=== PATIENT | female | born 2000 | race Caucasian/White ===

== ENCOUNTER 2021-08-07 11:41 | Outpatient (CLI) | payer BC, SELFPAY ==
--- NOTE | ~2021-08-07 | US_ITS ---
EXAMINATION: US breast RT limited HISTORY: Palpable lump of the lower-outer right breast. TECHNIQUE: The liver and right breast ultrasound is performed in the area of clinical concern. FINDINGS: There is a 3.0 x 1.4 cm oval, circumscribed, parallel, hypoechoic mass with posterior acous tic enhancement and internal vascularity at the 7:00 location 1 cm from the nipple. IMPRESSION: Right breast mass in the area of clinical concern with imaging features suggestive of a fibroadenoma. Recommend clinical follow-up and follow-up targeted right breast ultrasound in six months. BI-RADS category 3, probably benign findings. Reviewed, dictated and finalized at location A. [employer] IMPRESSION: Right breast mass in the area of clinical concern with imaging features suggest camryn of a fibroadenoma. Recommend clinical follow-up and follow-up targeted righ t breast ultrasound in six months. BI-RADS category 3, probably benign findings.
== END 2021-08-07 11:42 | disposition home or self-care (01) ==
LOC: ANHIMG 11:44
PROVIDERS: PCP Physician Assistant; Visit Provider Physician Assistant
DX: N63.10 Unspecified lump in the right breast, unspecified quadrant (principal); R92.8 Other abnormal and inconclusive findings on diagnostic imaging of breast
CPT/HCPCS: 76642

== ENCOUNTER → 2021-11-07 01:24 | Outpatient (CLI) | payer BC, SELFPAY ==
[2021-11-07 11:52] LABS: SARS-CoV-2 RNA PCR Negative
== END ==
PROVIDERS: PCP Physician Assistant; Visit Provider Surgery
DX: Z01.812 Encounter for preprocedural laboratory examination (principal); Z20.822 Contact with and (suspected) exposure to COVID-19
CPT/HCPCS: C9803; U0003; U0005

== ENCOUNTER 2021-11-10 01:37 | Day surgery (SDC) | payer BC, SELFPAY ==
[2021-11-06 14:03] VITALS: BMI 22.8
--- NOTE | 2021-11-06 14:50 | SUR.PREOP ---
Report to the Outpatient Waiting Room, entrance under the green pavilion located off [facility], at time _1000 on date _11/10/21 . OR Time: _1200 . - You and your visitor will be asked a series of questions to screen for COVID 19 for your protection. - A mask is required within the hospital. Preoperative COVID Testing Requirements: No COVID Test needed if: (proof is required; if not received patient will have Rapid Test prior to entry) - Patient has received COVID Vaccine at least 14 days prior to procedure date or - Patient has positive COVID test result within last 90 days of surgery date. COVID Test needed if above criteria is not met If not COVID vaccinated a COVID test must be conducted within 72 hours of surgery and patient is asked to isolate self from time of testing until procedure. You will go to the [facility] for your COVID testing. The [facility] is located at the corner of [address] [facility]. You will only be called if COVID results are positive and your surgeon may reschedule your elective surgery date. Patients may have clear liquids (water, carbonated beverages, clear teas, apple juice) until 3 hours prior to surgery with a maximum of 20 ounces. - No food from midnight until time of surgery - Infants may have breast milk until 4 hours before surgery, infant formula 6 hours prior to surgery. - Children will be allowed to drink immediately following surgery. If applicable, please bring a bottle or sippy cup to assist with drinking. Juice, water, soda, and popsicles are readily available. For infants on formula, please bring formula the day of surgery. Pacifiers are allowed. Take the following medications with a SIP of water the morning of surgery: ____n/a Medications to discontinue per physician ____n/a Date to take last dose__n/a Please no make-up, nail welsh, hairspray, perfume, deodorant, or body powder the day of surgery. No jewelry (including any body piercings) or valuables the day of surgery, leave them at home. Please take a shower or bath the night before, or the morning of, surgery with an antibacterial soap. Wear comfortable, loose fitting clothing. Children are encouraged to wear pajamas. - Jewelry must be removed prior to entering the operating room. Rings and piercings that are not removed may be cut off. - The hospital will not accept responsibility for valuables. - Please leave all valuables, including medications, at home the day of surgery. If you are going home after surgery, a licensed entry driver operator must drive you home. - NO public transportation without another adult. - We recommend that an adult stay with you for 24 hours following discharge. - We also recommend that you do not drive, make important decision, drink alcoholic beverages, or take any drugs that were not prescribed by your health care provider for at least 24 hours after your discharge time. For Pediatric surgeries, we recommend two adults accompany the child home (only one inside the building at this time). One visitor will be allowed to accompany the patient into the hospital. Patients visitor will be instructed to remain with patient at all times or leave the building. We will allow the visitor to come back to the postoperative area when patient is ready. Follow any additional instructions given to you from your surgeon. Telephone instructions given to alyssa an and asked if any additional questions and then verbalized understanding. Patient advised to call surgeon office or pre surgery nurse liaison [phone] if any additional questions.
[2021-11-10] MEDS: ACETAMINOPHEN 500 MG TABLET 1000 MG PO (10:23)
[2021-11-10] MEDS: KETOROLAC 15 MG/ML VIAL (*BKC) IV PUSH (10:25)
[2021-11-10] MEDS: LACTATED RINGERS 1,000 ML 30 ML IV CONT (10:25)
[2021-11-10 10:50] VITALS: BP 115/85; PULSE 122; RESP 20; TEMP 37.4; O2SAT 100
--- NOTE | 2021-11-10 10:54 | P.PNAN_ITS ---
Anes - Initial Pre Proc Eval Procedure: Operation Date: 11/10/21 12:00 Proposed Procedures p Right Breast Lumpectomy - Aleks Koo DO Date/Time: 11/10/21 10:54 Surgeon: Aleks Koo DO Pre Op Diagnosis: right breast mass Patient Data Age: 21 Gender: F Height: 1.57 m Weight: 56.81 kg Allergies Allergy/AdvReac Type Severity Reaction Status Date / Time No Known Allergies Allergy Unknown Verified 11/06/21 13:48 Home Medications Medication Instructions Recorded Confirmed Type No Home Medications 10/02/21 11/06/21 History Patient hx anesthesia problems: none Family hx anesthesia problems: none Results Review: All pre-operative results and documents have been reviewed as part of the pre-operative evaluation. [facility] Past Medical History Medical History Smoker Surgical History Surgical History No history of previous surgery Family History Family History Father Hypertension Thyroid condition Grandparent Cancer Fibromyalgia Other Diabetes mellitus Social History Social History Tobacco type: e-cigarettes/vaping Additional smoking assessment comments: daily Alcohol intake: never Substance use: current Substance use type: marijuana Other substance usage details: 1 every few months Spiritual care concerns: No Anes - Eval Final PreProcedure Day of Procedure 11/10/21 10:54 Patient weight: normal Heart: regular rate and rhythm Lungs: clear to auscultation Airway: Mallampati scale class II Neurological: alert and oriented Last oral intake: >/= 8 hours ASA classification: II Emergent: no Anesthetic plan: proceed Anesthesia type and monitoring: general LMA and standard monitoring Results Review: All pre-operative results and documents have been reviewed as part of the pre-operative evaluation. Informed Consent: The patient's anesthetic plan and its attendant risks and benefits were discussed with the patient/family/POA. Questions were solicited and answers provided to the satisfaction of the patient/family/POA.
--- NOTE | 2021-11-10 11:45 | WPDHPUPDATE1 ---
History and Physical Update Update Date/Time: 11/10/21 11:45 History and Physical has been reviewed, including an updated exam of the patient. There are NO changes in the patient's condition. Risks, benefits, and alternatives have been discussed and questions answered. Patient agrees to proceed with procedure.
--- NOTE | 2021-11-10 11:45 | PM.IMHP ---
H&P: HPI History of Present Illness Date/Time: 11/10/21 11:45 Chief Complaint: right breast mass Narrative: 21 yo woman presents for right breast lumpectomy. She denies any changes since last seen in office. Review of Systems Review of Systems: All systems reviewed & are unremarkable except as noted in HPI and below Constitutional: Constitutional: Denies chills, Denies fever(s), Denies headache(s) and Denies weight loss Eyes: Eyes: Denies change in vision ENT: Denies dizziness, Denies headache(s), Denies neck mass and Denies throat swelling Cardiovascular: Cardiovascular: Denies chest pain, Denies lightheadedness and Denies dyspnea Respiratory: Respiratory: Denies cough, Denies dyspnea and Denies wheezing Gastrointestinal: Gastrointestinal: Denies abdominal pain, Denies change in bowel habits, Denies nausea and Denies vomiting Genitourinary: Genitourinary: Denies hematuria and Denies dysuria Musculoskeletal: Musculoskeletal: Reports as per HPI Integumentary/Breasts: Skin/Breast: Reports as per HPI Neurologic: Denies dizziness and Denies headache(s) Allergic/Immunologic: Allergic/Immunologic: Denies throat swelling and Denies wheezing PMFSH Past Medical History Medical History Smoker Surgical History Surgical History No history of previous surgery Family History Family History Father Hypertension Thyroid condition Grandparent Cancer Fibromyalgia Other Diabetes mellitus Social History Social History Tobacco type: e-cigarettes/vaping Additional smoking assessment comments: daily Alcohol intake: never Substance use: current Substance use type: marijuana Other substance usage details: 1 every few months Spiritual care concerns: No Meds Home Medications and Allergies Home Medications Medication Instructions Recorded Confirmed Type No Home Medications 10/02/21 11/10/21 History Allergies Allergy/AdvReac Type Severity Reaction Status Date / Time No Known Allergies Allergy Unknown Verified 11/10/21 10:56 Vital Signs Vital Signs - 24 hr 11/10/21 10:50 Temperature 37.4 C Pulse Rate 122 H Respiratory Rate 20 Blood Pressure 115/85 Pulse Oximetry 100 Exam Const: General: no acute distress and alert Orientation/consciousness: patient oriented x3 HENMT: Head: normocephalic and atraumatic Ears: hearing grossly normal bilaterally General nose exam: Normal nares present Mouth: Yes Normal oral and palatal mucosa present Eyes: Periorbital: periorbital findings normal Sclera: sclerae normal EOM: EOMs intact bilaterally Neck: Neck: normal visual inspection, no lymphadenopathy and trachea midline Chest: Other: Right breast mass Resp: Effort & Inspection: normal respiratory effort Auscultation: clear to auscultation bilaterally Cardio: Jugular venous distension: no JVD Rate: regular rate Rhythm: regular rhythm Heart sounds: S1 normal heart sound present and S2 normal heart sound present Peripheral pulses: Peripheral pulses 2+ throughout GI: Inspection: normal to inspection GI Palp: Yes Soft to palpation, No Tenderness to palpation present (GI), No Guarding due to palpation present (GI) and No Rebound tenderness present Percussion: Yes normal to percussion Auscultation: normal bowel sounds : General: Yes no CVA tenderness Back/Spine/Pelvis: Back: no CVA tenderness Neuro: General: patient oriented x3, no focal motor deficits and CN's II-XI intact bilaterally Cognition (Neuro): normal cognition Speech: normal speech Motor exam (neuro): 5/5 motor strength present throughout Extrem: General: capillary refill normal and no clubbing, cyanosis or edema Assessment and Plan Assessment and plan (1) Breast mass, right: Qualifiers: Breast mass location: lower outer quadran
[2021-11-10] MEDS: ceFAZolin 2 GM/D5W 50 ML 2 GM/50 ML BAG IVPB (11:56)
[2021-11-10] MEDS: BUPIVACAINE/EPINEPHRINE 0.25% 10 ML VIAL INFILTRATE (12:07)
--- NOTE | 2021-11-10 12:34 | P.OP_ITS ---
Procedure Note - Detailed Date of Procedure 11/10/21 Pre-op Diagnosis right breast mass Post-op Diagnosis same Procedure Performed Right breast lumpectomy Surgeon Aleks Koo, DO Anesthesia MAC and local (0.25% bupivacaine with epinephrine) Indications This is a 21-year-old woman who presents with a right breast mass that has developed over the past 4 months. She states that this started out as a pea- sized nodule that has increased in size over that time. An ultrasound was obtained which showed evidence of a 3 cm hypoechoic mass consistent with a fibroadenoma. Discussions were made with the patient about treatment options and decision was made to proceed with right breast lumpectomy. Findings Right breast lumpectomy was performed. A curvilinear periareolar incision was made on the inferior side of the nipple areola complex. The mass was carefully dissected free using electrocautery. The mass did appear to extend mostly within the subareolar region and was very close to the base of the nipple and the skin under the nipple areola complex. The mass was completely excised and sent to the lab for pathology. Description of Procedure Procedure as well as risks, benefits, and alternatives were discussed with the patient. Written consent was obtained and placed in chart prior to procedure. Patient was brought back to surgical suite. She was placed supine on operating table. Time-out was done to confirm patient and procedure. IV sedation was then administered by the anesthesia department. Her right breast area was prepped and draped in sterile fashion using chlorhexidine prep. 0.5% bupivacaine with epinephrine was infiltrated locally around the skin and subcutaneous area. A 3 cm curvilinear incision was made at the underside of the nipple areola complex using a 15 blade scalpel. Electrocautery was used for hemostasis and for dissection down through the subcutaneous tissue and around the mass. The mass was carefully dissected free from the surrounding subcutaneous attachments using electrocautery. A carefully completely excised the mass intact and then sent this for pathology. The wound bed was then inspected. Hemostasis appeared adequate no other masses were identified. The deep dermis was then reapproximated using 3-0 Vicryl simple interrupted sutures. The skin was then reapproximated using 4-0 Monocryl subcuticular suture. Exofin glue was then applied on top. The patient was then awakened from anesthesia and transferred to recovery. Estimated Blood Loss 5 Pathology yes (Right breast lumpectomy) Complications No immediate complications Condition stable Disposition same day
[2021-11-10 12:36] VITALS: BP 100/64; PULSE 68; RESP 16; O2SAT 100
[2021-11-10 13:00] VITALS: BP 107/69; PULSE 87; RESP 16
[2021-11-10 13:20] VITALS: BP 107/69; PULSE 64; RESP 16
[2021-11-10] MEDS: oxyCODONE HCL (*CRX) 5 MG TAB IR PO (13:20)
--- NOTE | 2021-11-10 13:35 | SUR.OPER ---
Right Breast Lumpectomy Specimen sent fresh at end of case to pathology per [facility] PCT and received by Stephen in the Pathology Lab.
== END 2021-11-10 13:30 | disposition home or self-care (01) ==
PROVIDERS: PCP Physician Assistant; Visit Provider Surgery
PROC: (CPT 19301; principal; 2021-11-10 12:00)
DX: D24.1 Benign neoplasm of right breast (principal); N60.21 Fibroadenosis of right breast; F17.290 Nicotine dependence, other tobacco product, uncomplicated; F12.90 Cannabis use, unspecified, uncomplicated
CPT/HCPCS: 19301; 88305; 88307; A9270; J0690; J1885; J2704; J3010; J7120

== ENCOUNTER 2024-08-05 13:23 | Outpatient (CLI) | payer BC, SELFPAY | END 2024-08-05 13:24 | disposition home or self-care (01) | PROVIDERS: PCP Physician Assistant; Visit Provider Physician Assistant | DX: E03.9 Hypothyroidism, unspecified (principal) | CPT/HCPCS: 36415; 84439; 84443 ==

== ENCOUNTER 2025-03-09 08:53 | Outpatient (CLI) | payer BC, SELFPAY ==
--- NOTE | ~2025-03-09 | US_ITS ---
EXAMINATION TYPE: US breast RT limited COMPARISON: NONE REASON FOR STUDY: N63.13 - Unspecified lump in the right breast, lower oute... TECHNIQUE: Targeted sonographic evaluation of the right breast was performed. INTERPRETATION: Possible 4 mm hypoechoic circumscribed parapharyngeal mass at the right breast 12:00 position near th e nipple. Additional possible 3 mm hypoechoic circumscribed pleural mass at the right breast 9:00 pos ition, 5 cm from the nipple. IMPRESSION: 2 separate subcentimeter, circumscribed probable benign-appearing masses, as detailed above. BI-RADS CATEGORY: BI-RADS 3: Probably benign. Six-month follow-up ultrasound recommended. Reviewed, dictated and finalized at location . IMPRESSION: 2 separate subcentimeter, circumscribed probable benign-appearing masses, as de tailed above. BI-RADS CATEGORY: BI-RADS 3: Probably benign. Six-month follow-up ultrasound recommended.
== END 2025-03-09 08:54 | disposition home or self-care (01) ==
PROVIDERS: PCP Physician Assistant; Visit Provider Surgery
DX: N63.13 Unspecified lump in the right breast, lower outer quadrant (principal); R92.8 Other abnormal and inconclusive findings on diagnostic imaging of breast
CPT/HCPCS: 76642